=== PATIENT | female | born 1960 | race Caucasian/White ===

== ENCOUNTER 2017-09-10 08:39 | Emergency (ER) | payer OTHER ==
--- NOTE | 2017-09-10 09:43 | RAD REPORT ---
EXAM DESCRIPTION: CT - Head Brain Wo Cont - 09/10/2017 9:28 am CLINICAL HISTORY: Headache COMPARISON: None. TECHNIQUE: Computed axial tomography of the head was obtained. IV contrast was not requested. All CT scans are performed using dose optimization technique as appropriate and may include automated exposure control or mA/KV adjustment according to patient size. FINDINGS: An intracranial bleed is not seen . The ventricles are normal in caliber. No extra-axial fluid collection is noted. Fluid within the sinuses/ mastoids is not seen. IMPRESSION: No acute intracranial abnormality is seen. If patient's symptoms persist MRI of the bra in would be recommended.
[2017-09-10] MEDS ORDERED: ALBUTEROL 2.5 MG/3 ML NEB SOL ONE (09:44)
[2017-09-10] MEDS ORDERED: IPRATROPIUM BROM 0.5MG/2.5ML ONE (09:44)
[2017-09-10] MEDS ORDERED: KETOROLAC 30 MG/ML INJ ONE (10:08)
--- NOTE | 2017-09-10 10:21 | RAD REPORT ---
EXAM DESCRIPTION: RAD - Chest Pa And Lat (2 Views) - 09/10/2017 9:41 am CLINICAL HISTORY: Cough, shortness of breath. COMPARISON: None. FINDINGS: The lungs are clear. The heart is upper limit of normal in size. No displaced fractures. IMPRESSION: No acute or concerning finding suspected.
--- NOTE | 2017-09-10 10:26 | EDPHYS ---
Physician Documentation [facility] Name: Wendy Martell Age: 57 yrs Sex: Female : 1960 Arrival Date: 09/10/2017 Time: 08:41 Bed 7 Private MD: ED Physician Keenan Sloan HPI: 09/10 10:23 This 57 yrs old Female presents to ER via EMS with complaints of Shortness Of gs Breath, Headache. 10:23 The patient or guardian reports cough, that is intermittent. Onset: The gs symptoms/episode began/occurred 2 day(s) ago. Severity of symptoms: At their worst the symptoms were moderate, in the emergency department the symptoms are unchanged. Modifying factors: The symptoms are alleviated by inhaler, recently out of her inhaler. Associated signs and symptoms: Pertinent negatives: chest pain, vomiting. The patient has experienced similar episodes in the past, a few times. Historical: - Allergies: 08:47 Seroquel; ae1 - Home Meds: 08:47 Tramadol Oral [Active]; Carbamazepine Oral [Active]; Hydroxyzine Oral [Active]; ae1 zolpidem Oral [Active]; - PMHx: 08:47 COPD; PTSD; ae1 10:37 Chronic pain; gs - PSHx: 08:47 ; ae1 - Immunization history:: Last tetanus immunization: > 10 years ago Flu vaccine is not up to date. - Social history:: Smoking status: Patient uses tobacco products, smokes one pack cigarettes per day. ROS: 10:23 All other systems are negative. gs 10:23 Neuro: Positive for headache, gradual onset says headache new. gs Exam: 10:23 Head/Face: Normocephalic, atraumatic. Eyes: Pupils equal round and reactive to light, gs extra-ocular motions intact. Lids and lashes normal. Conjunctiva and sclera are non-icteric and not injected. Cornea within normal limits. Periorbital areas with no swelling, redness, or edema. ENT: Nares patent. No nasal discharge, no septal abnormalities noted. Tympanic membranes are normal and external auditory canals are clear. Oropharynx with no redness, swelling, or masses, exudates, or evidence of obstruction, uvula midline. Mucous membranes moist. Neck: Trachea midline, no thyromegaly or masses palpated, and no cervical lymphadenopathy. Supple, full range of motion without nuchal rigidity, or vertebral point tenderness. No Meningismus. Chest/axilla: Normal chest wall appearance and motion. Nontender with no deformity. No lesions are appreciated. Cardiovascular: Regular rate and rhythm with a normal S1 and S2. No gallops, murmurs, or rubs. Normal PMI, no JVD. No pulse deficits. Abdomen/GI: Soft, non-tender, with normal bowel sounds. No distension or tympany. No guarding or rebound. No evidence of tenderness throughout. Back: No spinal tenderness. No costovertebral tenderness. Full range of motion. Skin: Warm, dry with normal turgor. Normal color with no rashes, no lesions, and no evidence of cellulitis. MS/ Extremity: Pulses equal, no cyanosis. Neurovascular intact. Full, normal range of motion. Neuro: Awake and alert, GCS 15, oriented to person, place, time, and situation. Cranial nerves II-XII grossly intact. Motor strength 5/5 in all extremities. Sensory grossly intact. Cerebellar exam normal. Normal gait. 10:23 Constitutional: The patient appears alert, awake. 10:23 Respiratory: the patient does not display signs of respiratory distress, Respirations: normal, no use of accessory muscles, no pursed lip breathing, no retractions, Breath sounds: wheezing: expiratory that is moderate, is scattered. Vital Signs: 08:42 BP 121 / 89; Pulse 90; Resp 21; Temp 98.9(O); Pulse Ox 99% on R/A; Weight 99.79 kg (R); ae1 09:30 BP 110 / 72; Pulse 81; Resp 16; Pulse Ox 99% ; Pain 10/10; jl7 MDM: 09:02 Patient medically screened. gs 10:23 Differential Diagnosis: Bronchitis Upper Respiratory Infection Asthma Exacerbation gs Other neoplasm sah. Data reviewed: vital signs, nurses notes. Response to treatment: the patient's symptoms have markedly improved after treatment, and as a result, I will discharge patient. 09/10 09:10 Order name: XRAY Chest Pa And Lat (2 Views); Complete Time: 10:22 gs 09/10 09:10 Order name: CT Head Brain wo Cont; Complete Time: 10:22 gs Administered Medications: :45 Drug: Albuterol 2.5 mg Route: Inhalation; jl7 09:45 Drug: AtroVENT Aerosol 0.5 mg Route: Inhalation; jl7 10:20 Drug: TORadol 30 mg Route: IVP; Site: left antecubital; jl7 10:39 Follow up: Response: No adverse reaction aa5 Disposition: 09/10/17 10:26 Discharged to Home. Impression: Chronic obstructive pulmonary disease with (acute) exacerbation. - Condition is Stable. - Discharge Instructions: Chronic Obstructive Pulmonary Disease, Chronic Pain, General Headache Without Cause. - Prescriptions for Prednisone 20 mg Oral Tablet - take 1 tablet by ORAL route once daily for 5 days; 5 tablet. Albuterol Sulfate 90 mcg/actuation - inhale 1-2 puff by INHALATION route every 4-6 hours; 1 Inhaler. - Medication Reconciliation Form, Thank You Letter, Antibiotic Education, Prescription Opioid Use form. - Follow up: Private Physician; When: 2 - 3 days; Reason: Re-evaluation by your physician. Addendum: 09/23/2017 10:16 I agree with the assessment and plan of care. k Signatures: Dispatcher [employer] EDMS Andrés Guzman MD MD [facility] Patsy Boone RN RN aa5 Pedro Maguire RN RN ae1 Pancho Montoya RN RN jl7 Keenan Sloan MD MD gs Corrections: (The following items were deleted from the chart) 09/10 10:41 10:26 09/10/2017 10:26 Discharged to Home. Impression: Chronic obstructive pulmonary aa5 disease with (acute) exacerbation. Condition is Stable. Forms are Medication Reconciliation Form, Thank You Letter, Antibiotic Education, Prescription Opioid Use. Follow up: Private Physician; When: 2 - 3 days; Reason: Re-evaluation by your physician. gs
--- NOTE | 2017-09-10 10:26 | ER ---
Nurse's Notes [facility] Name: Wendy Martell Age: 57 yrs Sex: Female : 1960 Arrival Date: 09/10/2017 Time: 08:41 Bed 7 Private MD: Diagnosis: Chronic obstructive pulmonary disease with (acute) exacerbation Presentation: 09/10 08:48 Presenting complaint: EMS states: EMS states patient has had body aches, headache and ae1 SOB that started "a few days ago". Transition of care: patient was not received from another setting of care. Onset of symptoms is unknown. Initial Sepsis Screen: Does the patient meet any 2 criteria? RR > 20 per min. Does the patient have a suspected source of infection? No. Patient's initial sepsis screen is negative. Care prior to arrival: V/S 140/60, HR 87. 08:48 Acuity: LUCY 3 ae1 08:48 Method Of Arrival: EMS: [facility] ae1 Triage Assessment: 08:52 General: Appears uncomfortable, obese. Respiratory: Reports shortness of breath at rest ae1 on exertion cough that is Occasionally productive, mostly clear and sometimes yellow mucous. Onset: The symptoms/episode began/occurred gradually, the patient has moderate shortness of breath. Historical: - Allergies: 08:47 Seroquel; ae1 - Home Meds: 08:47 Tramadol Oral [Active]; Carbamazepine Oral [Active]; Hydroxyzine Oral [Active]; ae1 zolpidem Oral [Active]; - PMHx: 08:47 COPD; PTSD; ae1 10:37 Chronic pain; gs - PSHx: 08:47 ; ae1 - Immunization history:: Last tetanus immunization: > 10 years ago Flu vaccine is not up to date. - Social history:: Smoking status: Patient uses tobacco products, smokes one pack cigarettes per day. Screenin:52 Abuse screen: Denies threats or abuse. Nutritional screening: No deficits noted. ae1 Tuberculosis screening: No symptoms or risk factors identified. Fall Risk None identified. Assessment: 08:49 General: Appears uncomfortable, obese, unkempt, Behavior is cooperative, anxious. Pain: ae1 Complains of pain in head and back of head. Neuro: Level of Consciousness is awake, alert, obeys commands, Oriented to person, place, time, situation. Cardiovascular: Heart tones S1 S2 present Patient's skin is warm and dry. Rhythm is regular. Respiratory: Airway is patent Respiratory effort is even, shallow, mildly labored. Breath sounds are coarse bilaterally. Breath sounds with wheezes bilaterally. GI: No signs and/or symptoms were reported involving the gastrointestinal system. Abdomen is round obese. : No signs and/or symptoms were reported regarding the genitourinary system. EENT: No signs and/or symptoms were reported regarding the EENT system. Derm: Skin is pale. Musculoskeletal: Reports back pain. 10:00 Reassessment: Pt sitting in bed crying, reports headache rated 10/10, requesting pain jl7 meds. Provider notified, see MAR for orders. Neuro: Level of Consciousness is awake, alert, obeys commands, Oriented to person, place, Moves all extremities. Speech is normal. 10:39 Reassessment: Patient is alert, oriented x 3, equal unlabored respirations, skin aa5 warm/dry/pink. Vital Signs: 08:42 BP 121 / 89; Pulse 90; Resp 21; Temp 98.9(O); Pulse Ox 99% on R/A; Weight 99.79 kg (R); ae1 09:30 BP 110 / 72; Pulse 81; Resp 16; Pulse Ox 99% ; Pain 10/10; jl7 ED Course: 08:41 Patient arrived in ED. ae1 08:42 Keenan Sloan MD is Attending Physician. gs 08:49 Triage completed. ae1 08:51 Placed in gown. Bed in low position. Call light in reach. Side rails up X 1. Pulse ox ae1 on. NIBP on. Warm blanket given. 08:52 Arm band placed on right wrist. ae1 08:53 Initial lab(s) drawn, by me. Inserted saline lock: 20 gauge in left antecubital area, jl7 using aseptic technique. Blood collected. 08:59 Pancho Montoya, NATO is Primary Nurse. jl7 09:29 CT Head Brain wo Cont In Process Unspecified. EDMS 09:29 CT completed. Patient tolerated procedure well. Patient moved to CT via stretcher. jg1 Patient moved back from CT. 09:37 X-ray completed. Patient tolerated procedure well. Patient moved back from radiology. jb2 09:38 XRAY Chest Pa And Lat (2 Views) In Process Unspecified. EDMS 10:39 No provider procedures requiring assistance completed. IV discontinued, intact, aa5 bleeding controlled, No redness/swelling at site. Pressure dressing applied. Administered Medications: 09:45 Drug: Albuterol 2.5 mg Route: Inhalation; jl7 09:45 Drug: AtroVENT Aerosol 0.5 mg Route: Inhalation; jl7 10:20 Drug: TORadol 30 mg Route: IVP; Site: left antecubital; jl7 10:39 Follow up: Response: No adverse reaction aa5 Outcome: 10:26 Discharge ordered by . gs 10:39 Discharged to home ambulatory. aa5 10:39 Condition: stable 10:39 Discharge instructions given to patient, Instructed on discharge instructions, follow up and referral plans. medication usage, Demonstrated understanding of instructions, follow-up care, medications, Prescriptions given X 2. 10:41 Patient left the ED. aa5 Signatures: Dispatcher [employer] EDNM Geovany Rubin jb2 Andria Valiente jg1 Patsy Boone, RN RN aa5 Pedro Maguire RN RN ae1 Pancho Montoya RN RN jl7 Keenan Sloan MD MD
== END 2017-09-10 10:41 | disposition home or self-care (01) ==
LOC: ER 08:39
DX: J44.1 Chronic obstructive pulmonary disease with (acute) exacerbation (principal); Z88.8 Allergy status to other drugs, medicaments and biological substances; F17.210 Nicotine dependence, cigarettes, uncomplicated
CPT/HCPCS: 70450; 71046; 96374; 99285

== ENCOUNTER 2017-09-19 15:08 | Emergency (ER) | payer OTHER ==
--- OUTSIDE RECORDS SUMMARY | 2017-09-19 15:10 | XMS REPORT | Clinical Summary ---
:1960 Author Organization [facility] Address [address] [place] [address] Care Team Providers Name Role Phone Asked, No Pcp Primary Care Provider Unavailable Allergies No Known Allergies Current Medications Prescription Sig. Disp. Refills Start Date End Date Status acetaminophen (TYLENOL Take 2 tablets 30 tablet 0 04/04/2017 05/04/2017 EXTRA STRENGTH) 500 MG (1,000 mg tablet total) by mouth every 6 (six) hours as needed for mild pain for up to 30 days. Active Problems Not on file Encounters Date Type Specialty Care Team Description 04/04/2017 Emergency Emergency Medicine Phil Jama Suicidal ideation ( Primary Dx); MD Adonay Psychosis, unspecified psychosis type; Other chronic pain; Tobacco abuse; Hypothyroidism, unspecified type 02/16/2017 - Emergency Emergency Medicine Sneha, Sheilaination ( Primary Dx); 02/22/2017 Peewee He MD Suicidal ideation after 09/18/2016 Social History Tobacco Use Types Packs/Day Years Used Date Current Every Day Smoker 1 Alcohol Use Drinks/Week oz/Week Comments No Sex Assigned at Date Recorded Not on file Last Filed Vital Signs Vital Sign Reading Time Taken Blood Pressure 122/73 04/04/2017 3:22 PM [employer] Pulse 95 04/04/2017 3:22 PM [employer] Temperature 36.7 C (98 F) 04/04/2017 10:40 AM [employer] Respiratory Rate 18 04/04/2017 3:22 PM [employer] Oxygen Saturation 97% 04/04/2017 3:22 PM [employer] Inhaled Oxygen Concentration - - Weight 99.3 kg (219 lb) 02/16/2017 4:23 PM CDT Height 165.1 cm (5' 5") 02/16/2017 4:23 PM CDT Body Mass Index 36.44 02/16/2017 4:23 PM CDT Plan of Treatment Not on file Results Gram stain (04/04/2017 11:20 AM) Component Value Ref Range Gram stain result No WBC's Few Gram positive rods Comment: Specimen Information Specimen Source: Urine Specimen Site: See UA Specimen Performing Laboratory Urine [facility] DEPARTMENT OF PATHOLOGY AND GENOMIC MEDICINE [address] [place], [place] [id number] Urine culture (04/04/2017 11:20 AM) Component Value Ref Range Urine culture isolate Mixed Gram positive afua 10-2 cfu/ml (A) Comment: Specimen Information Specimen Source: Urine Specimen Site: Clean catch Specimen Performing Laboratory Urine [facility] DEPARTMENT OF PATHOLOGY AND GENOMIC MEDICINE [address] [place] [id number] ECG 12 lead (04/04/2017 11:13 AM) Component Value Ref Range Ventricular rate 77 Atrial rate 77 VT interval 144 QRSD interval 72 QT interval 386 QTC interval 436 P axis 1 61 QRS axis 1 71 T wave axis 63 EKG impression Normal sinus rhythm with sinus arrhythmia-Septal infarct , age undetermined-Abnormal ECG-In automated comparison with ECG of 24-OCT-2008 14:36,-No significant change was found- Specimen Performing Laboratory [facility] MUSE [address] [place] [id number] Urinalysis screen and microscopy, with reflex to culture (04/04/2017 11:10 AM) Component Value Ref Range Specimen site Clean catch Color, UA Yellow Appearance, UA Clear Specific gravity, UA 1.013 1.001 - 1.035 pH, UA 7.0 5.0 - 8.5 Protein, UA Negative Negative Glucose, UA Negative Negative Ketones, UA Negative Negative Bilirubin, UA Negative Negative Blood, UA Negative Negative Nitrite, UA Negative Negative Urobilinogen, UA 2.0 (A) <2.0 Leukocyte esterase, UA Negative Negative Epithelial cells, UA 3 /HPF WBC, UA 5 (H) 0 - 4 /HPF RBC, UA 1 0 - 2 /HPF Bacteria, UA None seen None seen Yeast, UA None seen Yeast with pseudohyphae, UA None seen Specimen Performing Laboratory Urine [facility] DEPARTMENT OF PATHOLOGY AND GENOMIC MEDICINE [address] [place] [phone] Estimated GFR (04/04/2017 11:10 AM)Only the most recent of2 resultswithin the time period is included. Component Value Ref Range GFR Non Af Amer 65 mL/min/1.73 m2 GFR Af Amer 79 mL/min/1.73 m2 Comment: Chronic kidney disease: <60 mL/min/1.73m2 Kidney failure: <15 mL/min/1.73m2 The estimated GFR is calculated from the IDMS-traceable Modification of Diet in Renal Disease Equation. The accuracy of the calculation is poor when the creatinine is normal. Calculated values >90 mL/min/1.73m2 are not reported. This equation has not been validated in children (<18 years), women, the elderly (>70 years), or ethnic groups other than Caucasians and Americans. Specimen Performing Laboratory Plasma specimen [facility] DEPARTMENT OF PATHOLOGY AND GENOMIC MEDICINE [address] [place] [id number] Urine drugs of abuse screen (04/04/2017 11:10 AM)Only the most recent of2 resultswithin the time period is included. Component Value Ref Range Amphetamine screen, urine Negative Barbiturate screen, urine Negative Benzodiazepine screen, urine Negative Cannabinoid screen, urine Negative Cocaine screen, urine Negative Methadone metabolite (EDDP), urine Negative Opiates screen, urine Negative Oxycodone screen, urine Negative Phencyclidine screen, urine Negative Tricyclic screen, urine Negative Comment: Drug screen minimum concentration of detectability Ifmhiieqelws3908 ng/mL Barbiturates 200 ng/mL Dpqfwnexewlvgoh554 ng/mL Pdihqgb491 ng/mL Unuxbhhst353 ng/mL Iigzale864 ng/mL Ssddhjljs819 ng/mL Phencyclidine 25 ng/mL Qvupdocrpehl05 ng/mL Muophelnfb1608 ng/mL Negative test results indicates presumptive evidence of lack of clinically significant drug concentration in this urine specimen. Positive test results are presumptive evidence of clinically significant drug concentration in this urine specimen. Testing performed for medical purposes only. Specimen Performing Laboratory Urine [facility] DEPARTMENT OF PATHOLOGY AND GENOMIC MEDICINE [address] [place] [phone] CBC with platelet and differential (04/04/2017 11:10 AM)Only the most recent of2 resultswithin the time period is included. Component Value Ref Range WBC 8.20 4.50 - 11.00 k/uL RBC 4.29 4.20 - 5.50 m/uL HGB 13.5 12.0 - 16.0 g/dL HCT 41.2 37.0 - 47.0 % MCV 96.0 82.0 - 100.0 fL MCH 31.5 27.0 - 34.0 pg MCHC 32.8 31.0 - 37.0 g/dL RDW - SD 43.2 37.0 - 55.0 fL MPV 9.5 8.8 - 13.2 fL Platelet count 298 150 - 400 k/uL Nucleated RBC 0.00 /100 WBC Neutrophils 64.6 39.0 - 69.0 % Lymphocytes 26.8 25.0 - 45.0 % Monocytes 7.1 0.0 - 10.0 % Eosinophils 0.6 0.0 - 5.0 % Basophils 0.2 0.0 - 1.0 % Immature granulocytes 0.7Comment: "Immature granulocytes" 0.0 - 1.0 % (promyelocytes, myelocytes, metamyelocytes) Specimen Performing Laboratory Blood [facility] DEPARTMENT OF PATHOLOGY AND GENOMIC MEDICINE [address] [place] [id number] Thyroid stimulating hormone (04/04/2017 11:10 AM) Component Value Ref Range TSH 2.19 0.27 - 4.20 uIU/mL Specimen Performing Laboratory Plasma specimen [facility] DEPARTMENT OF PATHOLOGY AND GENOMIC MEDICINE [address] [place] [address] T4, free (04/04/2017 11:10 AM) Component Value Ref Range T4, free 0.7 (L) 0.9 - 1.7 ng/dL Specimen Performing Laboratory Plasma specimen [facility] DEPARTMENT OF PATHOLOGY AND GENOMIC MEDICINE [address] [place] [address]85 Alcohol level, blood (04/04/2017 11:10 AM)Only the most recent of2 resultswithin the time period is included. Component Value Ref Range Alcohol None Detected mg/dL Comment: Normal None Detected Legal Intoxication in [place]80 mg/dL (0.08%) - Whole Blood Toxic Qjzdqkexwgryd298 mg/dL (0.2%) Potentially Kimyd390 - 500 mg/dL (0.35 - 0.5%) Alcohol percent None Detected % Specimen Performing Laboratory Plasma specimen [facility] DEPARTMENT OF PATHOLOGY AND GENOMIC MEDICINE [address] [place] [id number] Comprehensive metabolic panel (04/04/2017 11:10 AM)Only the most recent of2 resultswithin the time period is included. Component Value Ref Range Sodium 137 135 - 148 mEq/L Potassium 4.4 3.5 - 5.0 mEq/L Chloride 99 98 - 112 mEq/L CO2 27 24 - 31 mEq/L Anion gap 11 7 - 15 mEq/L Comment: Starting from July , anion gap calculation no longer incorporates potassium. Please note the change. BUN 6 6 - 20 mg/dL Creatinine 0.9 0.5 - 0.9 mg/dL Glucose 96 65 - 99 mg/dL Calcium 9.1 8.3 - 10.2 mg/dL Protein 7.4 6.3 - 8.3 g/dL Comment: [place] 4.6-7.0 g/dL 1 week 4.4-7.6 g/dL 7 months-1year5.1-7.3 g/dL 1-2 years5.6-7.5 g/dL >3 years6.0-8.0 g/dL 18-150 6.3-8.3 g/dL Albumin 3.9 3.5 - 5.0 g/dL A/G ratio 1.1 0.7 - 3.8 Alkaline phosphatase 63 35 - 104 U/L AST 17 10 - 35 U/L ALT 11 5 - 50 U/L Total bilirubin 0.3 0.0 - 1.2 mg/dL Specimen Performing Laboratory Plasma specimen [facility] DEPARTMENT OF PATHOLOGY AND GENOMIC MEDICINE [address] [place] [address] Urinalysis, automated with microscopy (02/16/2017 6:13 PM) Component Value Ref Range Color, UA Yellow YELLOW Appearance, UA Clear Clear Specific gravity, UA 1.003 (A) 1.005 - 1.030 pH, UA 6.5 5.0 - 8.0 Protein, UA Negative Negative Glucose, UA Negative Negative Ketones, UA Negative Negative Bilirubin, UA Negative Negative Blood, UA Negative Negative Nitrite, UA Negative NEGATIVE Urobilinogen, UA <2.0 <2.0 E.U./dL Leukocyte esterase, UA Negative Negative Epithelial cells, UA <1 0 - 15 /HPF WBC, UA None seen 0 - 5 /Hpf RBC, UA <1 0 - 5 /HPF Bacteria, UA Few (A) None seen Yeast, UA None seen None Seen Yeast with pseudohyphae, UA None seen Specimen Performing Laboratory Urine [facility] DEPARTMENT OF PATHOLOGY AND GENOMIC MEDICINE [id number] [facility]. [address] [place] [id number] Acetaminophen level (02/16/2017 6:07 PM) Component Value Ref Range Acetaminophen level <15.0 10.0 - 30.0 ug/mL Specimen Performing Laboratory Plasma specimen [facility]PART[facility] MED[facility] [id number] [facility] [address] [place] [address] Salicylate level (02/16/2017 6:07 PM) Component Value Ref Range Salicylate <0.3 (L) 5.0 - 30.0 mg/dL Comment: Therapeutic Range: 5 - 30 mg/dL Specimen Performing Laboratory Plasma specimen [facility] DEPARTMENT OF PATHOLOGY AND GENOMIC MEDICINE [id number] [facility]. [address] [place] [address] after 09/18/2016 Insurance Payer Benefit Plan / Group Subscriber ID Type Phone Address MEDICARE MEDICARE PART A AND B xxxxxxxxxx Medicare [place], [place] MEDICA[place] MEDICAID xxxxxxxxx Medicaid Home: [address] [phone] [place], [place] [address]
--- OUTSIDE RECORDS SUMMARY | 2017-09-19 15:10 | XMS REPORT | Summary of Care ---
:1960 Author Name SASHA Oreilly, AMOR Address Unavailable Unavailable , Care Team Providers Name Role Phone GEOFF CHAUHAN N.P. Unavailable Unavailable SASHA Oreilly, [facility] Unavailable Unavailable TIEN FRANCIS PA, GEOFF Quiroz Unavailable Unavailable Unavailable Unavailable Unavailable Functional Status Name Dates Details Functional status health issues are not documented Status: Name Dates Details Cognitive status health issues are not documented Status: Problems Name Dates Details Well woman exam (V72.31, Z01.419) Status: Active Screening for STD (sexually transmitted disease) (V74.5, Z11.3) Status: Active Receiving pain medication Status: Active Anxiety (300.00, F41.9) Status: Active Screening for breast cancer (V76.10, Z12.31) Status: Active Hepatitis-C (070.70, B19.20) Status: Active Bacterial vaginosis (616.10, N76.0) Status: Active Inability to acquire clothing (V60.2, Z59.8) Status: Active Lack of food (994.2, Z59.4) Status: Active Chronic insomnia (780.52, F51.04) Status: Active Chronic schizoaffective disorder (295.72, F25.8) Status: Active PTSD (post-traumatic stress disorder) (309.81, F43.10) Status: Active Medications Name Dates Details Fenofibrate 160 MG Oral Tablet TAKE 1 TABLET DAILY. Refills: 0 Active QUEtiapine Fumarate 200 MG Oral Tablet Take one tablet by mouth at bedtime first week then afterward take 2 tablets at bedtime. Quantity: 60 Refills: 1 SASHA Oreilly, MARIAMEDAmelvin Divalproex Sodium ER 500 MG Oral Tablet Extended Release 24 Hour TAKE 1 TABLET BY MOUTH IN THE MORNING AND 2 TABLETS AT BEDTIME Quantity: 90 Refills: 2 SASHA Oreilly, JOSE DE JESUSAMMEDActive Zolpidem Tartrate 10 MG Oral Tablet TAKE 1 TABLET AT BEDTIME. Quantity: 30 Refills: 1 SASHA Oreilly, JOSE DE JESUSAMMEDActive MetroNIDAZOLE 500 MG Oral Tablet TAKE 1 TABLET TWICE DAILY UNTIL FINISHED. Quantity: 14 Refills: 0 CHAUHAN N.P., GEOFF Start : 12-Mar-2017 Active BusPIRone HCl - 5 MG Oral Tablet TAKE 1 TABLET 3 TIMES DAILY. Quantity: 90 Refills: 1 AMOR BAEZ M.D. Start : 25-Mar-2017 Active Allergies and Adverse Reactions Name Dates Details No Known Drug Allergies (Allergy) Status: Active Past Medical History Name Dates Details History of Anxiety and depression (300.00, F41.8) Status: Resolved History of Bone spur of acromioclavicular joint, unspecified laterality (726.91 , M75.80) Status: Resolved History of insomnia (V13.89, Z87.898) Status: Resolved History of Wears glasses (V49.89, Z97.3) Status: Resolved Procedures Procedure Dates Details . [facility] - PAP Date: 15-Feb-2017 [Q] HIV AB, HIV 1/2, EIA, WITH REFLEXES Date: 15-Feb-2017 [QL] HSV 1/2 IGG, HERPESELECT TYPE SPECIFIC AB Date: 15-Feb-2017 [H] Drug Screen Urine (9 Drugs) Date: 15-Feb-2017 [QLH] CMP W/EGFR Date: 25-Mar-2017 [QLH] TSH, 3RD GENERATION Date: 25-Mar-2017 [QLH] LIPID PANEL Date: 25-Mar-2017 [QLH] CBC (INCLUDES DIFF/PLT) Date: 25-Mar-2017 [QLH] HEMOGLOBIN A1c Date: 25-Mar-2017 [QLH] VALPROIC ACID Date: 25-Mar-2017 MA Digital Mammo Screening Timbo [id number] Date: 15-Feb-2017 Immunization Name Dates Details Immunizations not documented Family History Name Dates Details No pertinent family history Status: Active Social History Name Dates Details - Status: Name Dates Details Current every day smoker Vital Signs Date Test Result Details [id number]:00 Weight 219 lb Status: Body Mass Index Calculated 38.79 kg/m2 Status: Body Surface Area Calculated 2.01 m2 Status: 88-Akh-[id number]:56 BP Systolic 122 mm[Hg] Status: Comments: Location: LUE; Position: Sitting BP Diastolic 87 mm[Hg] Status: Comments: Location: LUE; Position: Sitting Height 63 in Status: Heart Rate 104 /min Status: Comments: Location: L Brachial Artery; Quality: Normal Respiration Rate 18 /min Status: Comments: Quality: Normal O2 SAT 97 % Status: Comments: Source: RA Temperature 98.5 f Status: Comments: Method: Oral Results Date Description Value Details Results not documented Plan of Care Name Dates Details Planned Observations [QL] VALPROIC ACID Intent Comments: Approx [id number] 10:00 AM Planned Goals not documented Planned Encounters Appointment; LESLI COLLADO M.D. On: 02-Apr-2017 10:30 Interventions Provided Medication ChangesBusPIRone HCl - 5 MG Oral Tablet - StartZolpidem Tartrate 10 MG Oral Tablet - Renew with ChangesLabs/Procedures/Imaging[QL] CBC (INCLUDES DIFF/PLT); To Be Done: 25 Mar 2017[[facility]] CMP W/EGFR; To Be Done: 25 Mar 2017[[facility] ] HEMOGLOBIN A1c; To Be Done: 25 Mar 2017[[facility]] LIPID PANEL; To Be Done: 25 Mar 2017[[facility]] TSH, 3RD GENERATION; To Be Done: 25 Mar 2017 Instructions Name Dates Details Instructions not documented Encounters Appointment; GEOFF CHAUHAN NP On: 15-Feb-2017 16:00 Encounter Diagnosis: Problem not documented Appointment; VANIA PARKINSON LCSW On: 18-Feb-2017 15:00 Encounter Diagnosis: Problem not documented Appointment; GEOFF CHAUHAN NP On: 22-Feb-2017 16:00 Encounter Diagnosis: Problem not documented Appointment; AMOR BAEZ M.D. On: 25-Mar-2017 11:00 Encounter Diagnosis: Problem not documented
--- OUTSIDE RECORDS SUMMARY | 2017-09-19 15:10 | XMS REPORT | Clinical Summary ---
:1960 Author Organization [facility] Address [address] [place] [address] Phone Care Team Providers Name Role Phone Unavailable Primary Care Provider Unavailable Allergies No Known Allergies Current Medications Prescription Sig. Disp. Refills Start Date End Date Status OXcarbazepine (TRILEPTAL) Take 600 mg by Active 600 MG tablet mouth 2 (two) times daily. BUSPIRONE HCL (BUSPAR Take by mouth. Active ORAL) CLONAZEPAM ORAL Take by mouth. Active TRAZODONE HCL (TRAZODONE Take by mouth. Active ORAL) ARIPIPRAZOLE (ABILIFY Take by mouth. Active ORAL) Active Problems Not on file Encounters Date Type Specialty Care Team Description 07/10/2017 - Emergency Emergency Medicine David Langford Suicidal ideation 07/11/2017 MD [place] (Primary Dx);SOB (shortness of breath);Cough;Wheezing; History of posttraumatic stress disorder (PTSD);Anxiety 07/10/2017 Orders Only General Internal Medicine after 09/18/2016 Social History Tobacco Use Types Packs/Day Years Used Date Current Every Day Smoker Smokeless Tobacco: Never Used Alcohol Use Drinks/Week oz/Week Comments No Sex Assigned at Date Recorded Not on file Last Filed Vital Signs Vital Sign Reading Time Taken Blood Pressure 116/83 07/11/2017 11:57 AM CDT Pulse 78 07/11/2017 11:57 AM CDT Temperature 36.8 C (98.2 F) 07/11/2017 11:57 AM CDT Respiratory Rate 20 07/11/2017 11:57 AM CDT Oxygen Saturation 96% 07/11/2017 11:57 AM CDT Inhaled Oxygen Concentration - - Weight 90.7 kg (200 lb) 07/10/2017 2:55 PM CDT Height 165.1 cm (5' 5") 07/10/2017 2:55 PM CDT Body Mass Index 33.28 07/10/2017 2:55 PM CDT Plan of Treatment Not on file Results CBC with platelet count + automated diff (07/10/2017 4:35 PM) Component Value Ref Range WBC 8.1 4.0 - 10.0 K/L RBC 4.83 4.00 - 5.00 M/L Hemoglobin 15.1 (H) 12.0 - 15.0 GM/DL Hematocrit 46.3 (H) 36.0 - 45.0 % MCV 95.7 82.0 - 99.0 fL MCH 31.3 27.0 - 33.0 pg MCHC 32.7 32.0 - 36.0 GM/DL RDW 14.1 12.0 - 15.0 % Platelets 295 150 - 430 K/CU MM MPV 7.6 6.5 - 10.5 fL nRBC 0 0 - 0 /100 WBC % Neutros 59 % % Lymphs 34 % % Monos 5 % % Eos 1 % % Baso 1 % # Neutros 4.80 1.80 - 8.00 K/L # Lymphs 2.70 1.48 - 4.50 K/L # Monos 0.40 0.00 - 1.30 K/L # Eos 0.10 0.00 - 0.50 K/L # Baso 0.10 0.00 - 0.20 K/L Specimen Performing Laboratory [facility] [address] [place] [address] CBC with platelet count + automated diff (07/10/2017 4:35 PM) Specimen Performing Laboratory Blood Narrative The following orders were created for panel order CBC with platelet count + automated diff. Procedure Abnormality Status --------- ------ CBC with platelet count ...[[id number]]AbnormalFinal result Please view results for these tests on the individual orders. Troponin I (07/10/2017 4:33 PM) Component Value Ref Range Troponin I 0.01 0.00 - 0.15 ng/mL Specimen Performing Laboratory Blood [facility] [address] [place] [address] Narrative Troponin I (TnI) levels must be interpreted in the context of the presenting symptoms and the clinical findings. Elevated TnI levels indicate myocardial damage, but are not specific for ischemic heart disease. Elevated TnI levels are seen in patients with other cardiac conditions (including myocarditis and congestive heart failure), and slight TnI elevations occur in patients with other conditions, including sepsis, renal failure, acidosis, acute neurological disease, and persistent tachyarrhythmia. hCG, serum, qualitative (07/10/2017 4:33 PM) Component Value Ref Range Preg Test, Serum Negative Specimen Performing Laboratory Body Fluid [facility] [address] [place] [address] B-type Natriuretic Factor (BNP) (07/10/2017 4:33 PM) Component Value Ref Range BNP <10 0 - 100 pg/mL Specimen Performing Laboratory Blood [facility] [address] [place] [address] Ethanol (07/10/2017 4:33 PM) Component Value Ref Range Ethanol Lvl <10 <=10 mg/dL Specimen Performing Laboratory Blood [facility] [address] [place] [address] Acetaminophen level (07/10/2017 4:33 PM) Component Value Ref Range Acetaminophen Level <6.0 (L)Comment: Specimen markedly hemolyzed 10.0 - 30.0 ug/mL Specimen Performing Laboratory Blood [facility] [address] [place] [address] Salicylate level (07/10/2017 4:33 PM) Component Value Ref Range Salicylate Lvl <5.0 (L) 20.0 - 30.0 mg/dL Specimen Performing Laboratory Blood [facility] [address] [place] [id number] Basic metabolic panel (Na, K+, Cl, CO2, Glu, Ca, BUN, Cr) (07/10/2017 4:33 PM) Component Value Ref Range Sodium 133 (L) 135 - 148 meq/L Potassium 5.1Comment: Specimen markedly hemolyzed 3.5 - 5.5 meq/L Chloride 99 98 - 106 meq/L CO2 24 20 - 31 meq/L BUN 4 (L) 10 - 26 mg/dL Creatinine 0.76Comment: Specimen markedly hemolyzed 0.50 - 1.20 mg/dL Glucose 104 70 - 110 mg/dL Calcium 9.3 8.5 - 10.5 mg/dL EGFR 79Comment: ESTIMATED GFR IS NOT ACCURATE mL/min/1.73 sq m CREATININE CLEARANCE IN PREDICTING GLOMERULAR FILTRATION RATE. ESTIMATED GFR IS NOT APPLICABLE FOR DIALYSIS PATIENTS. Specimen Performing Laboratory Blood [facility] [address] [place] [address] Urinalysis w/Microscopic + Reflex to Culture - Clear Catch (07/10/2017 4:16 PM) Component Value Ref Range Color, UA Yellow Clarity, UA Hazy Specific [place], UA 1.018 1.001 - 1.035 pH, UA 7.0 5.0 - 8.0 Protein, UA Negative Negative Glucose, UA Negative Negative Ketones, UA Negative Negative Bilirubin, UA Negative Negative Blood, UA Negative Negative Nitrite, UA Negative Negative Leukocytes, UA Negative Negative Urobilinogen, UA 2.0 (H) 0.2 - 1.0 mg/dL RBC, UA 1 /HPF WBC, UA 0 /HPF Mucus Occasional Squam Epithel, UA <1 /HPF Hyaline Casts, UA 1 /LPF Amorphous Crystals Few Specimen Source Specimen Performing Laboratory Urine - Urine, Voided [facility] [address] [place] [address] Rapid drug screen, urine (07/10/2017 4:16 PM) Component Value Ref Range Barbiturate Screen Negative Negative Benzodiazepine Screen Positive (A) Negative Cocaine (Metab.) Screen Negative Negative Methadone Screen Negative Negative Opiate Screen Negative Negative Cannabinoid Screen Negative Negative Amph/Methamph Screen Negative Negative Phencyclidine Screen Negative Negative Specimen Performing Laboratory Urine - Urine, Voided [facility] [address] [place] [address] Narrative DRUGCUTOFF CONC. Cocaine 300 ng/mL Fzojpruxotn15 ng/mL Hojnzoihiqgpon681 ng/mL Barbiturate 200 ng/mL Dxcrmfdpgntcy57 ng/mL Wxrjsp157 ng/mL Methadone 300 ng/mL Amphetamine/ 1000 ng/mL Methamphetamine This assay provides an unconfirmed qualitative test result for the clinical management of patients in emergency situations. Chain of custody not maintained. Some umlz-tve-dortciy medications, as well as adulterants, may cause inaccurate results. Clinical correlation should be applied. A more comprehensive drug screen or confirmation of a detected drug may be performed upon request. ECG 12 lead (07/10/2017 3:16 PM) Specimen Performing Laboratory GE MUSE Narrative Ventricular Rate 103 BPM Atrial Rate 103 BPM P-R Interval 132 ms QRS Duration 70 ms Q-T Interval 338 ms QTC Calculation(Bazett) 442 ms P [place] 51 degrees R [place] 53 degrees T [place] 50 degrees Sinus tachycardia Otherwise normal ECG No previous ECGs available Procedure Note Interface, External Ris In - 07/12/2017 10:34 PM CDT Ventricular Rate 103 BPM Atrial Rate 103 BPM P-R Interval 132 ms QRS Duration 70 ms Q-T Interval 338 ms QTC Calculation(Bazett) 442 ms P [place] 51 degrees R [place] 53 degrees T [place] 50 degrees Sinus tachycardia Otherwise normal ECG No previous ECGs available XR chest 1 view portable / bedside (07/10/2017 3:09 PM) Specimen Performing Laboratory GE RIS Narrative FINAL REPORT AP view of the chest dated 07/10/2017 COMPARISON: January 29, 2015 CLINICAL INFORMATION: SHORTNESS OF BREATH Comment:Heart is normal in size. Pulmonary vasculature is unremarkable. Lungs are clear. No pulmonary infiltrate or pleural effusion is present. Impression:No active cardiopulmonary disease or interval change. Signed: Juhi Tucker MD Report Verified Date/Time:07/10/2017 15:14:11 Reading Location: [address] Ortho Consult Reading Room Procedure Note Interface, External Ris In - 07/10/2017 3:16 PM CDT FINAL REPORT AP view of the chest dated 07/10/2017 COMPARISON: January 29, 2015 CLINICAL INFORMATION: SHORTNESS OF BREATH Comment: Heart is normal in size. Pulmonary vasculature is unremarkable. Lungs are clear. No pulmonary infiltrate or pleural effusion is present. Impression: No active cardiopulmonary disease or interval change. Signed: Juhi Tucker MD Report Verified Date/Time: 07/10/2017 15:14:11 Reading Location: [facility] C013 Ortho Consult Reading Room after 09/18/2016
--- OUTSIDE RECORDS SUMMARY | 2017-09-19 15:11 | XMS REPORT ---
:1960 Author Organization [facility] Address [address] [place] [address] Care Team Providers Name Role Phone NEDA PANDEY Unavailable Unavailable Problems This patient has no known problems. Allergies, Adverse Reactions, Alerts This patient has no known allergies or adverse reactions. Medications This patient has no known medications. Encounters Start End Encounter Admission Attending Care Care Encounter Date/Time Date/Time Type Type Clinicians Facility Department ID 2017-03-25 2017-03-25 Outpatient [facility] [id number] 00:00:00 00:00:00 2016-12-17 2016-12-17 Outpatient [facility] [id number] 00:00:00 00:00:00 2016-11-28 2016-11-28 Emergency [facility] [id number] 08:14:02 08:14:02 2016-11-28 2016-11-28 Emergency [facility] [id number] 06:16:49 06:16:49 2016-11-05 2016-11-05 Outpatient [facility] [id number] 00:00:00 00:00:00 2016-10-22 2016-10-22 Outpatient [facility] [id number] 00:00:00 00:00:00 2016-10-08 2016-10-08 Emergency [facility] [id number] 06:58:11 06:58:11 2016-10-07 2016-10-07 Emergency [facility] [id number] 11:45:06 11:45:06 Results Test Description Test Time Test Comments Text Results Atomic Results Result Comments HCG, SERUM, QUALITATIVE 2017-07-10 17:39:00 Test Item Value Reference Range Comments TEST SERUM (BEAKER) (test mwhq=406) Negative TROPONIN [id number] 17:22:00 Test Item Value Reference Range Comments TROPONIN I (BEAKER) (test jmww=794) 0.01 ng/mL 0.00-0.15 Troponin I (TnI) levels must be interpreted [...] failure, acidosis, acute neurological disease, and persistent tachyarrhythmia.SALICYLATE [id number] 17:17:00 Test Item Value Reference Range Comments SALICYLATE LEVEL (BEAKER) (test sdfp=582) < mg/dL 20.0-30.0 ACETAMINOPHEN [id number] 17:14:00 Test Item Value Reference Range Comments ACETAMINOPHEN LEVEL (BEAKER) < ug/mL 10.0-30.0 Specimen markedly hemolyzed (test ggvf=387) BASIC METABOLIC [id number] 17:14:00 Test Item Value Reference Range Comments SODIUM (BEAKER) (test 133 meq/L 135-148 asqk=640) POTASSIUM (BEAKER) (test 5.1 meq/L 3.5-5.5 Specimen markedly iaag=029) hemolyzed CHLORIDE (BEAKER) (test 99 meq/L 98-106 oszs=078) CO2 (BEAKER) (test 24 meq/L 20-31 bdud=922) BLOOD UREA NITROGEN 4 mg/dL 10-26 (BEAKER) (test bxgi=183) CREATININE (BEAKER) (test 0.76 mg/dL 0.50-1.20 Specimen markedly ppkb=901) hemolyzed GLUCOSE RANDOM (BEAKER) 104 mg/dL 70-110 (test kxtm=828) CALCIUM (BEAKER) (test 9.3 mg/dL 8.5-10.5 jpou=562) EGFR (BEAKER) (test 79 mL/min/1.73 sq m ESTIMATED GFR IS NOT ftzm=9422) ACCURATE CREATININE CLEARANCE IN PREDICTING GLOMERULAR FILTRATION RATE. ESTIMATED GFR IS NOT APPLICABLE FOR DIALYSIS PATIENTS. [id number] 17:11:00 Test Item Value Reference Range Comments ETHANOL (BEAKER) (test gbfx=515) < mg/dL <=10 B-TYPE NATRIURETIC FACTOR (BNP)2017-07-10 17:10:00 Test Item Value Reference Range Comments B-TYPE NATRIURETIC PEPTIDE (BEAKER) (test ltvw=009) < pg/mL 0-100 CBC W/PLT COUNT & AUTO [id number] 16:58:00 Test Item Value Reference Range Comments WHITE BLOOD CELL COUNT (BEAKER) (test qxjy=989) 8.1 K/ L 4.0-10.0 RED BLOOD CELL COUNT (BEAKER) (test ckkz=128) 4.83 M/ L 4.00-5.00 HEMOGLOBIN (BEAKER) (test jytr=258) 15.1 GM/DL 12.0-15.0 HEMATOCRIT (BEAKER) (test tbts=266) 46.3 % 36.0-45.0 MEAN CORPUSCULAR VOLUME (BEAKER) (test amrl=320) 95.7 fL 82.0-99.0 MEAN CORPUSCULAR HEMOGLOBIN (BEAKER) (test 31.3 pg 27.0-33.0 zicz=183) MEAN CORPUSCULAR HEMOGLOBIN CONC (BEAKER) (test 32.7 GM/DL 32.0-36.0 rkhz=309) RED CELL DISTRIBUTION WIDTH (BEAKER) (test 14.1 % 12.0-15.0 teco=598) PLATELET COUNT (BEAKER) (test jvwi=361) 295 K/CU MM 150-430 MEAN PLATELET VOLUME (BEAKER) (test rcog=479) 7.6 fL 6.5-10.5 NUCLEATED RED BLOOD CELLS (BEAKER) (test 0 /100 WBC 0-0 ptgu=218) NEUTROPHILS RELATIVE PERCENT (BEAKER) (test 59 % vmuc=114) LYMPHOCYTES RELATIVE PERCENT (BEAKER) (test 34 % osqo=433) MONOCYTES RELATIVE PERCENT (BEAKER) (test 5 % owuf=837) EOSINOPHILS RELATIVE PERCENT (BEAKER) (test 1 % ovxn=086) BASOPHILS RELATIVE PERCENT (BEAKER) (test 1 % pxmm=910) NEUTROPHILS ABSOLUTE COUNT (BEAKER) (test 4.80 K/ L 1.80-8.00 tfhi=601) LYMPHOCYTES ABSOLUTE COUNT (BEAKER) (test 2.70 K/ L 1.48-4.50 lxoz=482) MONOCYTES ABSOLUTE COUNT (BEAKER) (test 0.40 K/ L 0.00-1.30 vzir=626) EOSINOPHILS ABSOLUTE COUNT (BEAKER) (test 0.10 K/ L 0.00-0.50 bwow=365) BASOPHILS ABSOLUTE COUNT (BEAKER) (test 0.10 K/ L 0.00-0.20 gpkt=562) RAPID DRUG SCREEN, [id number] 16:50:00 Test Item Value Reference Range Comments BARBITURATE URINE (BEAKER) (test vkxk=521) Negative Negative BENZODIAZEPINE SCREEN URINE (BEAKER) (test Positive Negative tojj=405) COCAINE (METAB.) SCREEN (BEAKER) (test gqzh=4097) Negative Negative METHADONE SCREEN (BEAKER) (test skkt=0864) Negative Negative OPIATE SCREEN URINE (BEAKER) (test tyww=377) Negative Negative CANNABINOID SCREEN URINE (BEAKER) (test mfnn=308) Negative Negative AMPH/METHAMPH SCREEN (BEAKER) (test enwd=8184) Negative Negative PHENCYCLIDINE SCREEN URINE (BEAKER) (test uvrm=587) Negative Negative DRUG CUTOFF CONC.Cocaine 300 ng/mL Cannabinoid 50 ng/mLBenzodiazepine 200 ng/mLBarbiturate 200 ng/ mLPhencyclidine 25 ng/mLOpiate 300 ng/mLMethadone 300 ng/mLAmphetamine/ 1000 ng/mL MethamphetamineThis assay provides an unconfirmed qualitative test result for the clinical management of patients in emergency situations. Chain of custody not maintained. Some pjuk-efg-hbyseic medications, as well as adulterants, may cause inaccurate results. Clinical correlation should be applied. A more comprehensivedrug screen or confirmation of a detected drug may be performed upon request.URINALYSIS W/ REFLEX URINE [id number] 16:43:00 Test Item Value Reference Range Comments COLOR (BEAKER) (test ayok=057) Yellow CLARITY (BEAKER) (test avzy=781) Hazy SPECIFIC GRAVITY UA (BEAKER) (test xjtk=323) 1.018 1.001-1.035 PH UA (BEAKER) (test gmue=750) 7.0 5.0-8.0 PROTEIN UA (BEAKER) (test qtxz=661) Negative Negative GLUCOSE UA (BEAKER) (test fbzd=279) Negative Negative KETONES UA (BEAKER) (test ubwn=313) Negative Negative BILIRUBIN UA (BEAKER) (test ctnh=352) Negative Negative BLOOD UA (BEAKER) (test ugje=982) Negative Negative NITRITE UA (BEAKER) (test ooax=666) Negative Negative LEUKOCYTE ESTERASE UA (BEAKER) (test rojb=772) Negative Negative UROBILINOGEN UA (BEAKER) (test oavo=608) 2.0 mg/dL 0.2-1.0 RBC UA (BEAKER) (test kekr=587) 1 /HPF WBC UA (BEAKER) (test ojwn=141) 0 /HPF MUCUS (BEAKER) (test nwwv=4469) Occasional SQUAMOUS EPITHELIAL (BEAKER) (test yuaw=666) < /HPF HYALINE CASTS (BEAKER) (test tvyd=690) 1 /LPF AMORPHOUS CRYSTALS (BEAKER) (test tuwi=6537) Few SOURCE(BEAKER) (test gjoa=0886) RAD, CHEST, 1 VIEW, NON [id number] 15:14:00Reason for exam:->SHORTNESS OF BREATHIs the patient ?->UnknownShould this be performedat the bedside?->YesFINAL REPORT AP view of the chest dated 07/10/2017 COMPARISON: January 29, 2015 CLINICAL INFORMATION: SHORTNESS OF BREATH Comment: Heart is normal in size. Pulmonary vasculature is unremarkable. Lungs are clear. No pulmonary infiltrate or pleural effusion is present. Impression: No active cardiopulmonary disease or interval change. Signed: Juhi Tucker MDReport Verified Date/Time: 07/10/2017 15:14:11 Reading Location: [facility] [id number] Ortho Consult Reading Room
[2017-09-19 15:51] LABS: Absolute Lymphocytes (CBC) 2.8 K/uL (0.7-4.9); Absolute Monocytes 0.5 K/uL (0.1-1.3); Absolute Neutrophil 3.7 K/uL (1.8-8.0); Basophils % 1.1 % (0-1.3); Eosinophils % 1.3 % (0-4.4); Hematocrit 40.8 % (36.0-45.0); Lymphocytes % 39.5 % (15.3-44.8); MCH 32.4 pg (27.0-35.0); MCV 96.1 fL (80-100); MPV 7.8 fL (7.6-11.3); Monocytes % 7.3 % (3.3-12.3); RBC Red Blood Cell Count 4.24 M/uL (3.86-4.86)
[2017-09-19 15:57] LABS: Protime INR 0.96
[2017-09-19 16:00] LABS: Barbiturates NEGATIVE; Benzodiazepines NEGATIVE; Cocaine NEGATIVE; METHAMPHETAM NEGATIVE (NEGATIVE); Opiates NEGATIVE; Phencyclidine NEGATIVE; THC Cannibis NEGATIVE
[2017-09-19 16:01] LABS: Bicarbonate 25 mEq/L (21-31); Glucose Level 99 mg/dL (65-120); Potassium 3.9 mEq/L (3.6-5.0); Sodium Level 134 mEq/L (135-145)
[2017-09-19 16:07] LABS: ALT/SGPT 15 IU/L (10-60); AST/SGOT 20 IU/L (10-42); Albumin 4.2 g/dL (3.2-5.5); Alkaline Phosphatase 64 IU/L (42-121); BUN Blood Urea Nitrogen 12 mg/dL (6-20); Bilirubin Direct < 0.1 mg/dL (0-0.2); Bilirubin Total 0.2 mg/dL (0.3-1.2); Protein, Total 7.3 g/dL (6.0-8.3)
[2017-09-19 16:12] LABS: Alcohol Serum/Plasma < 10 mg/dl
[2017-09-19] MEDS ORDERED: LORAZEPAM 1 MG TABLET ONE (16:57)
[2017-09-19 17:23] LABS: Urine Blood NEGATIVE (NEG); Urine Glucose NEGATIVE (NEG); Urine Protein NEGATIVE (NEG); Urine pH 6.5 (5.0-7.0)
[2017-09-19] MEDS ORDERED: TRAMADOL HCL 50 MG TAB ONE (19:35)
[2017-09-20] MEDS ORDERED: IBUPROFEN 400 MG TAB ONE (00:55)
[2017-09-20] MEDS ORDERED: IBUPROFEN 200 MG TAB PO ONE ×2 (00:56→08:16)
[2017-09-20] MEDS ORDERED: TRAMADOL HCL 50 MG TAB ONE ×2 (03:53→12:09)
[2017-09-20] MEDS ORDERED: LORAZEPAM 1 MG TABLET ONE (08:44)
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
--- NOTE | 2017-09-20 12:46 | EKG ---
Test Date: 2017-09-19 Test Time: 16:27:28 Ear Muff Assembler: KAYLEN MEASUREMENT RESULTS: Intervals: Rate: 72 MT: 106 QRSD: 74 QT: 394 QTc: 431 [place]: P: 63 MT: 106 QRS: 74 T: 64 INTERPRETIVE STATEMENTS: Sinus rhythm with short MT Otherwise normal ECG No previous ECG available for comparison Electronically Signed On 09-20-17 12:43:46 CDT by Chin Ramirez
--- NOTE | 2017-09-20 14:00 | ER ---
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 present: no. 13:45 Safety checks: Items removed: yes. Door open/sign placed on door: yes. Family/friend ap present: no. Administered Medications: 09/19 16:58 Drug: Ativan 2 mg Route: PO; em 18:58 Follow up: Response: No adverse reaction em 19:48 Drug: traMADol 50 mg Route: PO; ao 09/20 04:28 Follow up: Response: No adverse reaction ao 00:30 Drug: Ibuprofen 600 mg Route: PO; ao 04:28 Follow up: Response: No adverse reaction ao 04:28 Drug: traMADol 50 mg Route: PO; ao 08:17 Drug: Ibuprofen 600 mg Route: PO; hb 09:15 Follow up: Response: No adverse reaction hb 08:45 Drug: Ativan 2 mg Route: PO; hb 09:45 Follow up: Response: No adverse reaction hb 12:06 Drug: traMADol 50 mg Route: PO; hb Outcome: 12:35 ER care complete, transfer ordered by . 13:59 Patient left the ED. hb Signatures: Karin Manzo Edgar, BUNCH TRIMMER MOLD BUNCH TRIMMER MOLD Azalia Chinchilla RN RN Joan Kay, RN RN Tiffany Lopez Alex RN NATO ao Jaquan Renee, MERCURY CELL CLEANER MERCURY CELL CLEANER pm1 Nettie Aranda RN RN hb Wise, Tara, RN RN 2 Hailey Fajardo [facility] Keenan Sloan MD MD gs Kitchen, Lyla Ekta Diop [facility]
== END 2017-09-20 13:59 ==
LOC: ER 15:08
DX: F29 Unspecified psychosis not due to a substance or known physiological condition (principal); F20.9 Schizophrenia, unspecified; F31.9 Bipolar disorder, unspecified; F17.210 Nicotine dependence, cigarettes, uncomplicated; Z88.5 Allergy status to narcotic agent; Z88.6 Allergy status to analgesic agent; Z88.8 Allergy status to other drugs, medicaments and biological substances
CPT/HCPCS: 36415; 80048; 80076; 80307; 80320; 80329; 81003; 85025; 85610; 85730; 93005; 99285